=== PATIENT | female | born 1980 | race Caucasian/White ===

== ENCOUNTER 2016-08-23 21:27 | Inpatient (IN) ==
[2016-08-23 21:49] LABS: Basophils % 0.2 %; Hematocrit 38.6 % (35.3-44.9); Hemoglobin 13.2 g/dL (11.5-15.4); Immature Granulocytes % 1.2 % (0-4); Lymphocytes # 2.5 K/mcL (0.6-4.6); Lymphocytes % 11.8 %; Mean Corpuscular HGB Conc 34.2 g/dL (31.6-35.5); Mean Corpuscular Hemoglobin 28.3 pg (28.0-33.3); Mean Corpuscular Volume 82.8 fL (83.0-100.0); Mean Platelet Volume 9.3 fL (9.4-12.4); Monocytes # 0.8 K/mcL (0.0-1.3); Monocytes % 3.7 %; Neutrophils # 17.8 K/mcL (1.6-8.9); Platelet Count 428 K/mcL (140-400); Red Blood Count 4.66 M/mcL (3.82-4.97); Red Cell Distribution Width 13.5 % (11.5-14.5); Segmented Neutrophils % 83.1 %
--- NOTE | 2016-08-23 21:50 | Emergency Department Note ---
Disposition Clinical Impression: Pericardial effusion, Atypical chest pain Disposition: Admitted As Inpatient Condition: Fair Time of Disposition: 23:19 (preethijustin agee [facility]) Chest Pain HPI - General Chief Complaint: ED Chest Pain Stated Complaint: Chest pain Time Seen by Provider: 08/23/16 21:35 Source: patient Mode of arrival: ambulatory Limitations: no limitations Vital Signs Reviewed: Yes Nursing Notes Reviewed: Yes - History of Present Illness HPI Narrative: 36-year-old female while fixing dinner started developing some substernal chest pain patient continued to fix dinner and then eat dinner and then came to the emergency room complaining of the chest pain patient states it has been going on for about 4-5 hours prior to arrival patient states that substernal hurts to breathe hurts to move denies any cough hemoptysis or sputum production she denies any recent infection she denies any rashes or lesions she has a diarrhea melena hematochezia symptoms patient is anything makes it better anything makes it worse shows a blurred vision double vision numbness tingling weakness recent weight gain or weight loss also systems reviewed otherwise negative Pt complaint: chest pain Onset (ago): hour(s) (4) Duration: constant Onset: during rest Pain Location: substernal Severity: moderate Severity scale (1-10): 7 Quality: tightness, heaviness Pain Radiation: back Improves with: nothing Worsens with: exertion, inspiration, movement Associated symptoms: Reports: diaphoresis, dyspnea, palpitations. Denies: nausea, vomiting, sense of impending doom, syncope, fever, cough, leg swelling Treatments prior to arrival chest pain: none - Related Data Home Medications Medication Instructions Recorded Confirmed Atorvastatin [Lipitor] 40 mg PO HS 03/17/15 08/23/16 Diazepam [Valium] 5 mg PO TID PRN 10/04/15 08/23/16 Albuterol Neb [Proventil Neb] 2.5 mg IH Q4HR PRN 03/03/16 08/23/16 Budesonide/Formoterol 80/4.5 2 puff IH BIDR 03/03/16 08/23/16 [Symbicort 80/4.5] Omeprazole [PriLOSEC] 20 mg PO DAILY 03/03/16 08/23/16 Trazodone HCl 200 - 300 mg PO HS 03/03/16 08/23/16 Vilazodone HCl [Viibryd] 40 mg PO DAILY 03/03/16 08/23/16 Hydrochlorothiazide 12.5 mg PO DAILY 07/29/16 08/23/16 Cyclobenzaprine [Flexeril] 10 mg PO TID 08/09/16 08/23/16 Previous Rx's Medication Instructions Recorded Montelukast [Singulair] 10 mg PO DAILY #30 tablet 03/22/15 Albuterol Sulfate [Albuterol 2 puff IH Q4H PRN #1 inh 02/02/16 Inhaler] Potassium Chloride 10 meq PO DAILY #30 tab.er.prt 02/02/16 Naproxen [Naprosyn] 500 mg PO BID #20 tablet 08/09/16 Allergies Allergy/AdvReac Type Severity Reaction Status Date / Time venom-honey bee Allergy Anaphylaxis Verified 03/30/16 15:57 [bee venom (honey bee)] All systems ED: reviewed and negative except as stated. Constitutional: Denies: fever, weakness Eyes: Denies: eye pain, eye discharge ENT ED: Denies: ear pain, throat pain Cardiovascular: Reports: chest pain, dyspnea on exertion. Denies: palpitations , paroxysmal nocturnal dyspnea Respiratory: Denies: cough, dyspnea, wheezes Gastrointestinal: Denies: abdominal pain, nausea, vomiting Genitourinary: Denies: urgency, dysuria Musculoskeletal: Reports: other (Lower extremity edema). Denies: back pain, neck pain, joint swelling Integumentary: Denies: rash, abrasion Neurological: Denies: headache, weakness Psychiatric: Denies: anxiety, depression Endocrine: Denies: fatigue Hematological/Lymphatic: Denies: easy bleeding Allergic/Immunologic: Denies: facial swelling Chest Pain PMH - Past Medical History Medical history: Reports: hyperlipidemia, hypertension, asthma, other (Back pain , degenerative disc disease), COPD Surgical history: Reports: other (Neck Surgery) Psychiatric history: Reports: previous psychiatric hospitalization, anxiety, bipolar, depression, prior suicide attempt BLOCK TRIMMER history: Reports: bilateral tubal ligation - Social History Smoking Status: Former smoker Alcohol use: Reports: none Drug use: Reports: none Physical Exam - General Limitations: no limitations General appearance: alert, in no apparent distress, anxious, obese - Head Head exam: atraumatic, normocephalic, normal inspection - Eye Eye exam: Present: normal appearance, PERRL, EOMI - ENT ENT exam: normal exam, normal oropharynx, mucous membranes moist, normal external ear exam - Neck Neck exam: Present: normal inspection, trachea midline, other (no JVD) - Chest Chest inspection: Present: normal inspection, symmetric chest wall rise - Respiratory Respiratory exam: Present: normal lung sounds bilaterally - Cardiovascular Cardiovascular exam: Present: regular rate, normal rhythm, normal heart sounds. Absent: JVD - Abdominal Exam Abdominal exam: Present: soft, Non-Tender, normal bowel sounds. Absent: mass, pulsatile mass - Extremities Exam Extremities exam: Present: normal inspection, full ROM, normal capillary refill. Absent: tenderness, joint swelling - Expanded Lower Extremity Exam Gait: observed and normal - Back Exam Back exam: Present: normal inspection, full ROM. Absent: muscle spasm - Neurological Exam Neurological exam: Present: alert, oriented X3, CN II-XII intact - Psychiatric Psychiatric exam: Present: normal affect, normal mood - Skin Skin exam: Present: warm, dry, intact, normal color Course Course Narrative: Patient seen and examined patient is admitted for observation after a CAT scan shows effusion around the heart versus wall thickening to determine the etiology of this shiny neck heart but with her having chest pain we will admit her for observation tonight and do the echo patient be transferred to [facility] telemetry service services Dr. Hooks initial laboratory data with the exception of the white count being elevated was negative Vital Signs Temperature 97.7 F 08/23/16 21:28 Pulse Rate 122 08/23/16 21:28 Respiratory Rate 18 08/23/16 21:28 Blood Pressure 157/98 08/23/16 21:28 O2 Sat by Pulse Oximetry 98 08/23/16 21:28 Temperature 97.7 F 08/23/16 21:32 Pulse Rate 110 08/23/16 23:45 Respiratory Rate 21 08/23/16 23:45 Blood Pressure 129/49 08/23/16 23:45 O2 Sat by Pulse Oximetry 95 08/23/16 23:45 Oxygen Delivery Oxygen Delivery Room Air Chest Pain - MDM Narrative Medical decision making narrative: pericardial effusion - Differential Diagnosis Likely: atypical chest pain, chest pain - Medical Records Medical records reviewed: Yes I reviewed the patient's medical records. - Lab Data Lab results reviewed: Yes I reviewed the patient's lab results. Result diagrams: 08/23/16 21:42 08/23/16 21:42 Lab Results 08/23/16 08/23/16 08/23/16 Range/Units 21:42 21:42 21:42 WBC 21.4 H (4.3-11.1) K/mcL RBC 4.66 (3.82-4.97) M/mcL Hgb 13.2 (11.5-15.4) g/dL Hct 38.6 (35.3-44.9) % MCV 82.8 L (83.0-100.0) fL MCH 28.3 (28.0-33.3) pg MCHC 34.2 (31.6-35.5) g/dL RDW 13.5 (11.5-14.5) % Plt Count 428 H (140-400) K/mcL MPV 9.3 L (9.4-12.4) fL Immature Gran % 1.2 (0-4) % Seg Neutrophils % 83.1 % Lymphocytes % 11.8 % Monocytes % 3.7 % Eosinophils % 0.0 % Basophils % 0.2 % Neutrophils # 17.8 H (1.6-8.9) K/mcL Lymphocytes # 2.5 (0.6-4.6) K/mcL Monocytes # 0.8 (0.0-1.3) K/mcL Eosinophils # 0.0 (0.0-0.6) K/mcL Basophils # 0.0 (0.0-0.2) K/mcL PT 10.7 (9.4-12.1) Seconds INR 1.0 APTT 28.2 (26.0-36.0) Seconds D-Dimer 330 (0-500) ng/mLFEU Sodium 138 (136-145) mEq/L Potassium 3.8 (3.5-4.5) mEq/L Chloride 101 (98-109) mEq/L Carbon Dioxide 23 (19-29) mEq/L BUN 11 (7-20) mg/dL Creatinine 0.72 (0.57-1.11) mg/dL Est GFR ( Amer) > 60 (> 60) Est GFR (Non-Af Amer) > 60 (> 60) BUN/Creatinine Ratio 15 (6-26) Glucose 131 H (70-99) mg/dL Calculated Osmolality 287 (280-300) Calcium 9.4 (8.6-10.8) mg/dL Troponin I (0-0.03) ng/mL 08/23/16 Range/Units 21:42 WBC (4.3-11.1) K/mcL RBC (3.82-4.97) M/mcL Hgb (11.5-15.4) g/dL Hct (35.3-44.9) % MCV (83.0-100.0) fL MCH (28.0-33.3) pg MCHC (31.6-35.5) g/dL RDW (11.5-14.5) % Plt Count (140-400) K/mcL MPV (9.4-12.4) fL Immature Gran % (0-4) % Seg Neutrophils % % Lymphocytes % % Monocytes % % Eosinophils % % Basophils % % Neutrophils # (1.6-8.9) K/mcL Lymphocytes # (0.6-4.6) K/mcL Monocytes # (0.0-1.3) K/mcL Eosinophils # (0.0-0.6) K/mcL Basophils # (0.0-0.2) K/mcL PT (9.4-12.1) Seconds INR APTT (26.0-36.0) Seconds D-Dimer (0-500) ng/mLFEU Sodium (136-145) mEq/L Potassium (3.5-4.5) mEq/L Chloride (98-109) mEq/L Carbon Dioxide (19-29) mEq/L BUN (7-20) mg/dL Creatinine (0.57-1.11) mg/dL Est GFR ( Amer) (> 60) Est GFR (Non-Af Amer) (> 60) BUN/Creatinine Ratio (6-26) Glucose (70-99) mg/dL Calculated Osmolality (280-300) Calcium (8.6-10.8) mg/dL Troponin I 0.00 (0-0.03) ng/mL - Radiology Data Radiology results reviewed: Yes I reviewed the patient's radiology results. ITS Impressions Chest X-Ray 08/23/16 21:37 IMPRESSION: 1. No acute cardiopulmonary disease. D/ / Brendan Nagy MD / Brendan Nagy MD Interpreting Provider: Brendan Nagy MD Impressions Chest X-Ray 08/23/16 21:37 IMPRESSION: 1. No acute cardiopulmonary disease. D/ / Brendan Nagy MD / Brendan Nagy MD Interpreting Provider: Brendan Nagy MD Chest CT 08/23/16 22:23 IMPRESSION: Pericardial effusion versus thickening. Otherwise negative exam. D/ / Bijan Mckay MD / Bijan Mckay MD Interpreting Provider: Bijan Mckay MD - EKG Data EKG attestation: Yes I reviewed and interpreted this EKG. EKG results narrative: Sinus tach rate 118 nonspecific T-wave changes VA 156 QRS 69 QT [address] segment elevation no RSR prime Heart Score - Score History: Slightly Suspicious EKG: Normal Age: Less than 45 Risk Factors: No risk factors known Troponin: Less than normal limit HEART Score Total: 0 Critical Care Time Critical Care Time: No
[2016-08-23 21:56] LABS: Prothrombin Time 10.7 Seconds (9.4-12.1)
[2016-08-23 21:59] LABS: Activated Partial Thrombo Time 28.2 Seconds (26.0-36.0)
[2016-08-23 22:03] LABS: BUN/Creatinine Ratio 15 (6-26); Blood Urea Nitrogen 11 mg/dL (7-20); Calcium 9.4 mg/dL (8.6-10.8); Carbon Dioxide 23 mEq/L (19-29); Chloride 101 mEq/L (98-109); Glucose 131 mg/dL (70-99); Osmolality,Calculated 287 (280-300); Potassium 3.8 mEq/L (3.5-4.5); Sodium 138 mEq/L (136-145); eGFR For African Americans > 60 (> 60); eGFR For Non-African Americans > 60 (> 60)
[2016-08-23] MEDS ORDERED: Aspirin 81 MG TAB.CHEW PO ONE (23:41)
[2016-08-23] MEDS ORDERED: Acetaminophen 325 MG TABLET PO PRN (23:58)
[2016-08-23] MEDS ORDERED: Albuterol 2.5 MG/3 ML NEBULIZER IH PRN (23:58)
[2016-08-23] MEDS ORDERED: Naloxone 0.4 MG/ML INJ IVP PRN (23:58)
[2016-08-24 05:49] LABS: Basophils # 0.1 K/mcL (0.0-0.2); Basophils % 0.3 %; Eosinophils # 0.1 K/mcL (0.0-0.6); Eosinophils % 0.4 %; Hematocrit 36.7 % (35.3-44.9); Hemoglobin 12.1 g/dL (11.5-15.4); Lymphocytes # 4.6 K/mcL (0.6-4.6); Lymphocytes % 23.6 %; Mean Corpuscular Hemoglobin 27.9 pg (28.0-33.3); Mean Corpuscular Volume 84.6 fL (83.0-100.0); Mean Platelet Volume 9.2 fL (9.4-12.4); Monocytes # 1.4 K/mcL (0.0-1.3); Monocytes % 7.4 %; Neutrophils # 13.1 K/mcL (1.6-8.9); Platelet Count 379 K/mcL (140-400); Red Blood Count 4.34 M/mcL (3.82-4.97); Red Cell Distribution Width 13.6 % (11.5-14.5); Segmented Neutrophils % 67.3 %
[2016-08-24 05:57] LABS: Activated Partial Thrombo Time 27.8 Seconds (26.0-36.0)
[2016-08-24] MEDS: (Vilazodone Hcl [Viibryd] 40 MG) PO SCH (08:12)
[2016-08-24] MEDS: Budesonide/Formoterol 80/4.5 MDI IH SCH ×2 (10:03→21:47)
--- NOTE | 2016-08-24 11:42 | Internal Med History&Physical ---
Date of Encounter: 08/24/16 Time of Encounter: 11:10 Assessment and Plan (1) Atypical chest pain Current visit: Yes Status: Acute Repeat cardiac enzymes were ordered through the emergency room. Doubt myocardial ischemic origin. (2) Pericardial effusion Current visit: Yes Status: Acute Echocardiogram has been ordered. She is asymptomatic. Internal Medicine - H&P: HPI Chief complaint: Chest pain and dyspnea Admitted From: Home Plans for Post Hospital Care: Home History of present illness: Ms. Hanna is a 36 year old female who came to emergency complaining of sudden onset of sharp chest pain approximate 7:15 PM as she was having a stressful interaction with her son. She reports her blood pressure was elevated at 163/ 115 and heart rate elevated at 130. She took a lisinopril from her significant other's supply. After waiting 1 hour she found blood pressure and heart rate were still elevated so came to emergency room. She was evaluated with chest CT showing possible anterior pericardial effusion. She was admitted to [facility] floor for ongoing care needs. She states her chest pain has resolved and she has only minimal dyspnea now. She states she had similar sharp chest pains 3-4 times in the past with most recent episode several months ago. She has history of hypertension but denies [place] heart failure angina DVT or pulmonary embolus. She attempted a stress test several years ago but could not complete it. She had an echocardiogram 2015 which showed LVEF of 60-65% with mild LV diastolic dysfunction reported. Her interventricular septum thickness measurement was minimally elevated at 1.1 cm. There was no significant valvular abnormalities seen. Past Med Surg Social Fam HX - Past Medical History Medical history: hyperlipidemia, hypertension, asthma, other, COPD Psychiatric history: previous psychiatric hospitalization, anxiety, bipolar, depression, prior suicide attempt - Past Surgical History Surgical History: other - Social History Smoking Status: Former smoker Packs per day: 1 1/2 Smokeless Tobacco Status: No Alcohol use: none Drug use: none - Family History Father Adopted: [place]: faby perez Age: 59 Family Member Ethnicity: Non- Living Status: Age at : 59 Cause of : complication of dm Hx Family Cardiac Disorders: Yes Hx Family Respiratory Disorders: Yes Hx Family Cancer: Yes Hx Family GI Disorders: No Hx Family Genitourinary Disorders: No Hx Family Endocrine Disorder: No Hx Family Musculoskeletal Disorders: No Hx Family Neuromuscular Disorders: No Hx Family Neurologic Disorders: No Hx Family HEENT Disorders: No Hx Family Autoimmune Disorders: No Hx Family Reproductive Disorders: Yes (mother had cervical ca) Hx Family Psychosocial Disorders: No Hx Family Medical Disorders: Yes (dm,cad,obesity) Mother Adopted: No Living Status: Hx Family Respiratory Disorders: Yes Hx Family Cancer: Yes Internal Medicine - H&P: Meds Atorvastatin [Lipitor] 40 mg PO HS 03/17/15 [History] Montelukast [Singulair] 10 mg PO DAILY #30 tablet 03/22/15 [Rx] Diazepam [Valium] 5 mg PO TID PRN 10/04/15 [History] Albuterol Sulfate [Albuterol Inhaler] 2 puff IH Q4H PRN #1 inh 02/02/16 [Rx] Potassium Chloride 10 meq PO DAILY #30 tab.er.prt 02/02/16 [Rx] Albuterol Neb [Proventil Neb] 2.5 mg IH Q4HR PRN 03/03/16 [History] Budesonide/Formoterol 80/4.5 [Symbicort 80/4.5] 2 puff IH BIDR 03/03/16 [ History] Omeprazole [PriLOSEC] 20 mg PO DAILY 03/03/16 [History] Trazodone HCl 200 - 300 mg PO HS 03/03/16 [History] Vilazodone HCl [Viibryd] 40 mg PO DAILY 03/03/16 [History] Hydrochlorothiazide 12.5 mg PO DAILY 07/29/16 [History] Cyclobenzaprine [Flexeril] 10 mg PO TID 08/09/16 [History] Naproxen [Naprosyn] 500 mg PO BID #20 tablet 08/09/16 [Rx] Allergies venom-honey bee [bee venom (honey bee)] Allergy (Verified 03/30/16 15:57) Anaphylaxis All Systems PM: A 10-system review of systems was performed and is negative for pertinent findings except as documented above in the HPI. Review of systems: Gen.: Her weight has increased from 90.718 kg at April 2014 [facility] hospitalization to present weight of 104.326 kg. Cardiovascular: As per history of present illness Respiratory: Smoked from age [age] up to 1-1/2 packs per day. She does not wear home oxygen and has not been tested for sleep apnea. She had PFTs 2014 which showed normal results. GI: She has been diagnosed with NAFLD. She denies other disorder of her liver gallbladder or exocrine pancreas. : She had cystoscopy for hematuria approximately September 2013 which was unremarkable. She denies other kidney or bladder disorders. Neurologic: She denies large distribution strokes or seizures. Endocrine: She has hyperlipidemia but no known diabetes or thyroid disease Hematology/oncology: She has chronic leukocytosis and has been evaluated by [facility] [place] quality control coordinator/oncologist. Her last visit was July 2016. She denies internal malignancies or other blood disorders Psychiatric: She has anxiety, Bipolar disorder, and insomnia Musk skeletal: She claims she has arthritis of her knees and spine. She denies gout or fibromyalgia. She has cervical HNP and had cervical spine surgery February 2016 at [facility] [place]. - Constitutional Vitals: Temp Pulse Resp BP Pulse Ox 97.5 F L 114 16 113/86 98 08/24/16 09:55 08/24/16 09:55 08/24/16 10:03 08/24/16 09:55 08/24/16 10:03 Exam: General: She is well-developed well-nourished female who appears in no severe distress at present time. HEENT: Head is atraumatic normocephalic. Eyes: EOMI. There is no scleral icterus. Mouth: Mucosa is moist. Neck: Supple and nontender. There is no thyromegaly or adenopathy noted. JVD could not be assessed due to obesity Heart: Regular without murmurs gallops or ectopics. There are no pericardial friction rubs heard. Lungs: No wheezes or crackles are heard. Abdomen: Soft and nontender. No masses or guarding are noted. Extremities: There is no cyanosis edema or clubbing noted. Dorsalis pedis and posttibial pulses are trace palpable bilaterally. Neurologic: Mental status: She is talkative and a good historian. Cranial nerves: Smile is symmetric. Forehead wrinkles bilaterally. Tongue protrudes midline. EOMI. Motor: There is no pronator drift. Cerebellar: Finger to nose is intact bilaterally. Skin: Warm and dry. She has multiple tattoos on her body Internal Med - H&P Results - Labs CBC & Chem 7: 08/24/16 05:43 08/23/16 21:42 Labs: Short CBC 08/24/16 Range/Units 05:43 WBC 19.4 H (4.3-11.1) K/mcL Hgb 12.1 (11.5-15.4) g/dL Hct 36.7 (35.3-44.9) % Plt Count 379 (140-400) K/mcL Neutrophils # 13.1 H (1.6-8.9) K/mcL Cardiac Enzymes 08/24/16 08/24/16 Range/Units 00:38 05:43 Troponin I 0.01 0.00 (0-0.03) ng/mL
[2016-08-24] MEDS: 0.9 % Sodium Chloride 1,000 ML IVC SCH ×2 (13:29→13:31)
--- NOTE | 2016-08-24 17:58 | ECHO - Doppler Report ---
Echocardiogram Name: Noemi Hanna Date of Study: 08/24/2016 Date: 1980 Ht: 60.0 in Medical Record#: [id number] Age: 36 Wt: 230.0 lb Gender: Female BSA: 1.98 Order #: [id number] Location: [facility] Room #: 50 Reading Physician: Umu Clark DO Drywall Sprayer: Cuauhtemoc Beckett RDCS Ordering Physician: Kimberli Cheema DO Primary Physician: Indications: Pericarditis/Pericardial Effusion/Tamponade Impressions: LVEF 60%. Normal left ventricular size and systolic function. Indeterminate left venticular diastoic function Normal right ventricular size and function. No significant valvular dysfunction. No pulmonary hypertension. Trivial pericardial effusion. No tamponade. Left Ventricular Wall Motion: Rest Echo Findings All wall segments showed normal motion. Findings: Study Quality * Technically sub-optimal due to body habitus. ECG Findings * Sinus tachycardia. Mitral Valve * Normal mitral valve structure. * No mitral stenosis. * Trace mitral regurgitation. Left Atrium * Normal left atrial size. Aortic Valve * No aortic regurgitation. * Aortic valve not well visualized. Tricuspid Valve * Tricuspid valve not well visualized. * No tricuspid regurgitation. Pulmonic Valve * Pulmonic valve is not well visualized. * No pulmonic stenosis. * No pulmonic regurgitation. Pulmonary Artery * Pulmonary artery not well visualized. Right Ventricle * Normal right ventricular structure and function. Right Atrium * Normal right atrial size. Left Ventricle * Normal LV chamber size, wall thickness and function. * LVEF 60%. * Indeterminate diastolic function. Interatrial Septum * No evidence of PFO by color Doppler. IVC * Normal IVC dimensions and inspiratory collapse. Pericardium * There is a trivial pericardial effusion present. Aorta * Normally sized aortic root. History 5..16 a Previous Echo was performed. Measurements: BP: 116/ 80 2D Normal Values IVSd: .90 cm 0.6 - 1.0 cm LVIDd: 4.50 cm 3.7 - 5.6 cm LVPWd: .80 cm 0.6 - 1.1 cm LVIDs: 3.20 cm 1.5 - 3.6 cm AO: 2.70 cm < 4.0 cm LA: 3.00 cm 2.0 - 4.0cm %FS: 29.00 cm >25 % LA volume: 28 Mitral Valve Peak E:.94 m/sec Peak E' Lat Duglas:8.48 cm/s Peak E' Med Duglas:9.94 cm/s E/E' Lat Ratio:11.1 E/E' Med Ratio:9.4 Updated by Umu Clark on 08/24/2016 5:51:59 PM electronically signed on 08/24/2016 5:53:16 PM with status of Final Wall Motion Mello: 1=Normal, 2=Hypokinesis, 3=Akinesis, 4=Dyskinesis, 5=Aneurysmal, 6=Hyperkinetic, X=Not Visualized (Blank)=Missing
[2016-08-24] MEDS: *HR* Enoxaparin 40 MG/0.4 ML SYRINGE SQ SCH (18:54)
[2016-08-25] MEDS: *HR* Enoxaparin 40 MG/0.4 ML SYRINGE SQ SCH (05:05)
[2016-08-25 06:48] VITALS: BP 130/76
--- NOTE | 2016-08-25 09:51 | Discharge Summary ---
Date of Encounter: 08/25/16 Time of Encounter: 09:40 - Discharge Diagnosis (1) Atypical chest pain Priority: Primary Status: Resolved (2) Pericardial effusion Priority: Secondary Status: Acute - Discharge Medications Home Medications: Atorvastatin [Lipitor] 40 mg PO HS 03/17/15 [History] Montelukast [Singulair] 10 mg PO DAILY #30 tablet 03/22/15 [Rx] Diazepam [Valium] 5 mg PO TID PRN 10/04/15 [History] Albuterol Sulfate [Albuterol Inhaler] 2 puff IH Q4H PRN #1 inh 02/02/16 [Rx] Potassium Chloride 10 meq PO DAILY #30 tab.er.prt 02/02/16 [Rx] Albuterol Neb [Proventil Neb] 2.5 mg IH Q4HR PRN 03/03/16 [History] Budesonide/Formoterol 80/4.5 [Symbicort 80/4.5] 2 puff IH BIDR 03/03/16 [ History] Omeprazole [PriLOSEC] 20 mg PO DAILY 03/03/16 [History] Trazodone HCl 200 - 300 mg PO HS 03/03/16 [History] Vilazodone HCl [Viibryd] 40 mg PO DAILY 03/03/16 [History] Hydrochlorothiazide 12.5 mg PO DAILY 07/29/16 [History] Cyclobenzaprine [Flexeril] 10 mg PO TID 08/09/16 [History] Naproxen [Naprosyn] 500 mg PO BID #20 tablet 08/09/16 [Rx] Allergies/Adverse Reactions: Allergies venom-honey bee [bee venom (honey bee)] Allergy (Verified 03/30/16 15:57) Anaphylaxis Date of admission: 08/24/16 15:21 Primary care physician: Dori Sheridan CNP - Patient Status Disposition: Home, Self-Care Condition: Fair Overall status at discharge: patient is progressing back to baseline - Discharge Instructions Follow Up With: Dori Sheridan CNP [Primary Care Provider] - - Diet and Activity Activity: resume usual activities as tolerated Diet: advance to your usual diet Hospital course: Ms. Hanna is a 36 year old female who came to emergency complaining of sudden onset of sharp chest pain approximate 7:15 PM as she was having a stressful interaction with her son. She reports her blood pressure was elevated at 163/ 115 and heart rate elevated at 130. She took a lisinopril from her significant other's supply. After waiting 1 hour she found blood pressure and heart rate were still elevated so came to emergency room. She was evaluated with chest CT showing possible anterior pericardial effusion. She was admitted to [facility] for ongoing care needs. Initial orders were written by the emergency room physician. I saw her on August 24 and performed a history and physical. Repeat cardiac enzymes showed no evidence of myocardial damage. I did not feel her chest pain was likely of myocardial ischemic origin. An echocardiogram was done and showed a trivial amount of pericardial effusion present. There was no evidence of pericardial tamponade. The LVEF was 60%. There was normal LV systolic function and indeterminate diastolic function seen. No significant valvular abnormalities were noted. When I saw her on August 25 she stated the chest pain had resolved. Her blood pressure normalized on home medication regimen. She felt stable for discharge home which I felt was reasonable. She will follow with her PCP Dori Sheridan CNP within 1 week. - Time Spent with Patient Total time spent providing and/or coordinating discharge services: - Constitutional Vitals: Temp Pulse Resp BP Pulse Ox 98.3 F 108 18 130/76 94 L 08/25/16 06:34 08/25/16 06:34 08/25/16 06:34 08/25/16 06:34 08/25/16 06:34
[2016-08-25] MEDS: (Vilazodone Hcl [Viibryd] 40 MG) PO SCH (10:07)
--- NOTE | 2016-08-25 13:09 | Electrocardiograph Report ---
[address] [address] Test Date: 2016-08-23 Pat Name: Noemi Hanna Department: [id number] Room: [facility] Gender: F Provider Network Analyst: : 1980 Requested By: Kimberli Cheema Order Number: [id number] Reading MD: Aaron Barnett MD Measurements Intervals [place] Rate: 118 P: 32 DC: 156 QRS: 41 QRSD: 69 T: 42 QT: 426 QTc: 496 Interpretive Statements SINUS TACHYCARDIA NONSPECIFIC T-WAVE ABNORMALITY Electronically Signed On 08-25-2016 13:07:59 EDT by Aaron Barnett MD
== END 2016-08-25 11:00 | disposition home or self-care (01) | DRG 207 ==
LOC: EMEROOPIK 21:27 → INPPIK 21:27
PROVIDERS: ADMIT Internal Medicine; ATTEND Internal Medicine

== ENCOUNTER 2017-05-23 17:39 | Inpatient (IN) ==
[2017-05-23] MEDS ORDERED: Albuterol 2.5 MG/3 ML NEBULIZER IH ONE ×2 (18:11→19:15)
[2017-05-23] MEDS ORDERED: methylPREDNISolone 125 MG/2 ML VIAL IVP ONE (18:11)
[2017-05-23] MEDS ORDERED: Ipratropium/Albuterol Neb 3 ML IH ONE ×2 (18:11→19:15)
--- NOTE | 2017-05-23 18:15 | Emergency Department Note ---
Disposition Clinical Impression: Acute exacerbation of chronic obstructive airways disease Disposition: Admitted As Inpatient Condition: Good Referrals: Dori Sheridan HIV COUNSELOR [Primary Care Provider] - Forms: ED Satisfaction Letter Time of Disposition: 20:52 SOB HPI - General Chief Complaint: ED Shortness of Breath/Dyspnea Stated Complaint: cough/wheezing Time Seen by Provider: 05/23/17 18:10 Source: patient Mode of arrival: ambulatory Limitations: no limitations Nursing Notes Reviewed: Yes Vital Signs Reviewed: Yes - History of Present Illness 37-year-old female with a cough and difficulty breathing since Tuesday. She has a sore throat with rhinorrhea. No fever. Her cough is productive white sputum. She has a history of COPD and asthma. No chest pain. No vomiting or diarrhea. Pt Subjective Complaint: shortness of breath, cough Onset (ago): day(s) (3) Context: recent illness Severity: moderate Consistency/Duration: constant Improves with: rest Worsens with: exertion, coughing Known history of: COPD, asthma Associated symptoms: Reports: wheezing, other (Sore throat and runny nose) Cough present: Yes Cough Description: Involuntary Cough Frequency: Intermittent Sputum production: Yes Sputum Amount: Moderate Sputum Color: White - Related Data Home oxygen amount: none Home Medications Medication Instructions Recorded Confirmed Atorvastatin [Lipitor] 40 mg PO HS 03/17/15 05/23/17 diazePAM [Valium] 5 mg PO TID PRN 10/04/15 05/23/17 Budesonide/Formoterol 80/4.5 2 puff IH BIDR 03/03/16 05/23/17 [Symbicort 80/4.5] Trazodone HCl 200 - 300 mg PO HS 03/03/16 05/23/17 Vilazodone HCl [Viibryd] 40 mg PO DAILY 03/03/16 05/23/17 Lisinopril [Zestril] 20 mg PO DAILY 09/02/16 05/23/17 Furosemide [Lasix] 20 mg PO DAILY 01/06/17 05/23/17 Meclizine HCl [Verticalm] 12.5 mg PO BID 01/06/17 05/23/17 Aspirin [Lo-Dose Aspirin EC] 1 tab PO DAILY 05/16/17 05/23/17 BuPROPion [Wellbutrin] 100 mg PO DAILY 05/16/17 05/23/17 Previous Rx's Medication Instructions Recorded Montelukast [Singulair] 10 mg PO DAILY #30 tablet 03/22/15 Albuterol Sulfate [Albuterol 2 puff IH Q4H PRN #1 inh 02/02/16 Inhaler] Potassium Chloride 10 meq PO DAILY #30 tab.er.prt 02/02/16 Allergies Allergy/AdvReac Type Severity Reaction Status Date / Time No Known Allergies Allergy Verified 12/28/16 14:51 All systems ED: reviewed and negative except as stated. Constitutional: Denies: fever, chills Eyes: Denies: eye discharge ENT ED: Reports: throat pain. 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 Absent: scleral icterus, conjunctival injection - ENT ENT exam: normal oropharynx, mucous membranes moist, TM's normal bilaterally - Neck Neck exam: Present: normal inspection, full ROM, trachea midline. Absent: tenderness, lymphadenopathy - Chest Chest inspection: Present: normal inspection, symmetric chest wall rise - Respiratory Respiratory exam: Present: wheezes (Moderate diffuse bilateral expiratory), prolonged expiratory phase. Absent: respiratory distress, accessory muscle use - Cardiovascular Cardiovascular exam: Present: regular rate, normal rhythm, normal heart sounds - Abdominal Exam Abdominal exam: Present: soft, Non-Tender - Extremities Exam Extremities exam: Present: normal inspection, full ROM, normal capillary refill. Absent: pedal edema, calf tenderness - Neurological Exam Neurological exam: Present: alert, oriented X3, normal gait - Psychiatric Psychiatric exam: Present: normal affect, normal mood - Skin Skin exam: Present: warm, dry, intact, normal color. Absent: cyanosis, diaphoresis Course - Reevaluation(s) Reevaluation #1: Patient had a total of 6 and he will nebulizers. She still has moderate expiratory wheezing. She does not feel like she is improved enough to go home. There is no evidence of infiltrate or pneumonia on her x-ray. I discussed the case with Dr. Hooks. He has accepted patient for admission. Time: 20:51 Vital Signs Temperature 98.0 F 05/23/17 17:43 Pulse Rate 115 05/23/17 17:43 Respiratory Rate 20 05/23/17 17:43 Blood Pressure 150/78 05/23/17 17:43 O2 Sat by Pulse Oximetry 98 05/23/17 17:43 Temperature 98.0 F 05/23/17 17:43 Pulse Rate 115 05/23/17 17:43 Respiratory Rate 20 05/23/17 19:38 Blood Pressure 150/78 05/23/17 17:43 O2 Sat by Pulse Oximetry 98 05/23/17 19:38 Oxygen Delivery Oxygen Delivery Room Air Shortness of Breath/Dyspnea - Differential Diagnosis Likely: acute exacerbation of chronic obstructive airways disease, congestive heart failure, pneumonia, asthma with exacerbation, pneumothorax, arrhythmia - Lab Data Lab results reviewed: Yes I reviewed the patient's lab results. Result diagrams: 05/23/17 18:18 05/23/17 18:18 Lab Results 05/23/17 05/23/17 05/23/17 Range/Units 18:18 18:18 18:18 WBC 8.9 (4.3-11.1) K/mcL RBC 4.56 (3.82-4.97) M/mcL Hgb 12.1 (11.5-15.4) g/dL Hct 37.4 (35.3-44.9) % MCV 82.0 L (83.0-100.0) fL MCH 26.5 L (28.0-33.3) pg MCHC 32.4 (31.6-35.5) g/dL RDW 13.5 (11.5-14.5) % Plt Count 368 (140-400) K/mcL MPV 9.2 L (9.4-12.4) fL Immature Gran % 0.7 (0-4) % Seg Neutrophils % 76.2 % Lymphocytes % 14.5 % Monocytes % 6.3 % Eosinophils % 2.1 % Basophils % 0.2 % Neutrophils # 6.8 (1.6-8.9) K/mcL Lymphocytes # 1.3 (0.6-4.6) K/mcL Monocytes # 0.6 (0.0-1.3) K/mcL Eosinophils # 0.2 (0.0-0.6) K/mcL Basophils # 0.0 (0.0-0.2) K/mcL Sodium 136 (136-145) mEq/L Potassium 4.1 (3.5-4.5) mEq/L Chloride 102 (98-109) mEq/L Carbon Dioxide 24 (19-29) mEq/L BUN 7 (7-20) mg/dL Creatinine 0.73 (0.57-1.11) mg/dL Est GFR ( Amer) > 60 (> 60) Est GFR (Non-Af Amer) > 60 (> 60) BUN/Creatinine Ratio 10 (6-26) Glucose 100 H (70-99) mg/dL Calculated Osmolality 280 (280-300) Calcium 9.8 (8.6-10.8) mg/dL Total Bilirubin 0.2 (0.2-1.2) mg/dL AST 22 (5-34) Units/L ALT 19 (0-55) Units/L Alkaline Phosphatase 106 (38-126) Units/L Troponin I 0.00 (0-0.03) ng/mL B-Natriuretic Peptide (0-100) pg/mL Serum Total Protein 7.7 (6.0-8.3) g/dL Albumin 3.3 L (3.5-5.0) g/dL Globulin 4.4 H (2.4-3.5) g/dL Albumin/Globulin Ratio 0.8 L (1.1-2.2) //17 Range/Units 18:18 WBC (4.3-11.1) K/mcL RBC (3.82-4.97) M/mcL Hgb (11.5-15.4) g/dL Hct (35.3-44.9) % MCV (83.0-100.0) fL MCH (28.0-33.3) pg MCHC (31.6-35.5) g/dL RDW (11.5-14.5) % Plt Count (140-400) K/mcL MPV (9.4-12.4) fL Immature Gran % (0-4) % Seg Neutrophils % % Lymphocytes % % Monocytes % % Eosinophils % % Basophils % % Neutrophils # (1.6-8.9) K/mcL Lymphocytes # (0.6-4.6) K/mcL Monocytes # (0.0-1.3) K/mcL Eosinophils # (0.0-0.6) K/mcL Basophils # (0.0-0.2) K/mcL Sodium (136-145) mEq/L Potassium (3.5-4.5) mEq/L Chloride (98-109) mEq/L Carbon Dioxide (19-29) mEq/L BUN (7-20) mg/dL Creatinine (0.57-1.11) mg/dL Est GFR ( Amer) (> 60) Est GFR (Non-Af Amer) (> 60) BUN/Creatinine Ratio (6-26) Glucose (70-99) mg/dL Calculated Osmolality (280-300) Calcium (8.6-10.8) mg/dL Total Bilirubin (0.2-1.2) mg/dL AST (5-34) Units/L ALT (0-55) Units/L Alkaline Phosphatase (38-126) Units/L Troponin I (0-0.03) ng/mL B-Natriuretic Peptide < 10 (0-100) pg/mL Serum Total Protein (6.0-8.3) g/dL Albumin (3.5-5.0) g/dL Globulin (2.4-3.5) g/dL Albumin/Globulin Ratio (1.1-2.2) - Radiology Data Radiology results reviewed: Yes I reviewed the patient's radiology results. Impressions Chest X-Ray 05/23/17 18:11 IMPRESSION: No acute cardiopulmonary process. D/ / 05/23/2017 19:42:24 Jose Tsai MD / [email or web address] Interpreting Provider: Jose Tsai MD - EKG Data EKG attestation: Yes I reviewed and interpreted this EKG. EKG results narrative: Sinus tachycardia, rate 111, nonspecific ST-T changes. Rhythm shows sinus tachycardia with a rate of 111, NC interval 158 ms, QRS 76 ms was no other ectopy as interpreted by me.
[2017-05-23 18:25] LABS: Basophils % 0.2 %; Eosinophils # 0.2 K/mcL (0.0-0.6); Eosinophils % 2.1 %; Hematocrit 37.4 % (35.3-44.9); Hemoglobin 12.1 g/dL (11.5-15.4); Immature Granulocytes % 0.7 % (0-4); Lymphocytes # 1.3 K/mcL (0.6-4.6); Lymphocytes % 14.5 %; Mean Corpuscular HGB Conc 32.4 g/dL (31.6-35.5); Mean Corpuscular Hemoglobin 26.5 pg (28.0-33.3); Mean Platelet Volume 9.2 fL (9.4-12.4); Monocytes # 0.6 K/mcL (0.0-1.3); Monocytes % 6.3 %; Neutrophils # 6.8 K/mcL (1.6-8.9); Platelet Count 368 K/mcL (140-400); Red Blood Count 4.56 M/mcL (3.82-4.97); Red Cell Distribution Width 13.5 % (11.5-14.5); Segmented Neutrophils % 76.2 %
[2017-05-23 18:41] LABS: Alanine Aminotransferase 19 Units/L (0-55); Albumin 3.3 g/dL (3.5-5.0); Albumin/Globulin Ratio 0.8 (1.1-2.2); Alkaline Phosphatase 106 Units/L (38-126); Aspartate Amino Transferase 22 Units/L (5-34); BUN/Creatinine Ratio 10 (6-26); Bilirubin,Total 0.2 mg/dL (0.2-1.2); Blood Urea Nitrogen 7 mg/dL (7-20); Calcium 9.8 mg/dL (8.6-10.8); Carbon Dioxide 24 mEq/L (19-29); Chloride 102 mEq/L (98-109); Globulin 4.4 g/dL (2.4-3.5); Glucose 100 mg/dL (70-99); Osmolality,Calculated 280 (280-300); Potassium 4.1 mEq/L (3.5-4.5); Sodium 136 mEq/L (136-145); Total Protein 7.7 g/dL (6.0-8.3); eGFR For African Americans > 60 (> 60); eGFR For Non-African Americans > 60 (> 60)
[2017-05-23] MEDS ORDERED: diazePAM 5 MG TABLET PO PRN (22:39)
[2017-05-23] MEDS ORDERED: Ondansetron ODT 4 MG TAB.RAPDIS SL PRN (22:39)
[2017-05-23] MEDS ORDERED: Naloxone 0.4 MG/ML INJ IVP PRN (22:39)
[2017-05-23] MEDS: traZODone 50 MG TABLET PO SCH (22:57)
[2017-05-24] MEDS: Ipratropium/Albuterol Neb 3 ML IH SCH ×5 (00:52→21:09)
[2017-05-24] MEDS: MethylPREDNISolone 40 MG/ML VIAL IVP SCH ×4 (04:06→22:34)
[2017-05-24] MEDS: *HR* Enoxaparin 40 MG/0.4 ML SYRINGE SQ SCH (06:02)
[2017-05-24] MEDS: VILAZODONE HCL 40 MG PO SCH (08:48)
[2017-05-24] MEDS: Aspirin Enteric Coated 81 MG Tablet PO SCH (08:52)
[2017-05-24] MEDS: Furosemide 20 MG TABLET PO SCH (08:53)
[2017-05-24] MEDS ORDERED: Lisinopril 20 MG TABLET PO SCH (09:00)
[2017-05-24] MEDS ORDERED: Levalbuterol Neb 1.25 MG/3 ML ONE (10:25)
[2017-05-24] MEDS ORDERED: *HR* LORazepam 2 MG/ML VIAL IVP ONE (11:32)
[2017-05-24] MEDS ORDERED: *HR* LORazepam 2 MG/ML VIAL ONE (11:35)
--- NOTE | 2017-05-24 11:36 | Internal Med History&Physical ---
Date of Encounter: 05/24/17 Time of Encounter: 11:05 Assessment and Plan (1) Asthma with acute exacerbation Current visit: No Status: Chronic She has been started on Solu-Medrol IV with scheduled DuoNebs. No infiltrate was seen on chest x-rays so antibiotics will not be given at this time. Qualifiers: Asthma severity: unspecified severity Asthma persistence: intermittent Qualified Code(s): J45.21 - Mild intermittent asthma with (acute) exacerbation (2) Hypertension Current visit: No Status: Chronic She has tachycardia present on vital signs August 2016 and admission now. Will decrease lisinopril and start low-dose Toprol-XL. Qualifiers: Hypertension type: essential hypertension Qualified Code(s): I10 - Essential (primary) hypertension Internal Medicine - H&P: HPI Chief complaint: Dyspnea Admitted From: Emergency Dept Plans for Post Hospital Care: Home History of present illness: Ms. Hanna is a 37 year old female came to emergency room stating she had onset of dyspnea with cough productive of white sputum on May 21. He had vomiting this morning but no vomiting or diarrhea previously. Evaluated emergency room and felt to have exacerbation of COPD. She was admitted to Med[facility] floor for ongoing care needs. Her respiratory history significant for having smoked from age [age] up to 1-1/ 2 packs per day. She does not wear home oxygen and has not been tested for sleep apnea. She had PFTs 04/04/2015 which showed normal results. Past Med Surg Social Fam HX - Past Medical History Medical history: asthma, COPD, GERD, hyperlipidemia, hypertension, other Psychiatric history: previous psychiatric hospitalization, anxiety, bipolar, depression, prior suicide attempt - Past Surgical History Surgical History: other - Social History Smoking Status: Former smoker Smokeless Tobacco Status: No Alcohol use: none Drug use: none - Family History Father Adopted: No Family Member Ethnicity: Non- Living Status: Hx Family Cardiac Disorders: Yes Hx Family Respiratory Disorders: Yes Hx Family Cancer: Yes Hx Family GI Disorders: No Hx Family Endocrine Disorder: Yes Hx Family Neuromuscular Disorders: No Hx Family Neurologic Disorders: No Hx Family HEENT Disorders: No Hx Family Autoimmune Disorders: No Mother Adopted: No Living Status: Hx Family Cardiac Disorders: Yes Hx Family Respiratory Disorders: Yes (COPD, Asthma) Hx Family Cancer: Yes (Cervial) Internal Medicine - H&P: Meds Atorvastatin [Lipitor] 40 mg PO HS 03/17/15 [History] Montelukast [Singulair] 10 mg PO DAILY #30 tablet 03/22/15 [Rx] diazePAM [Valium] 5 mg PO TID PRN 10/04/15 [History] Albuterol Sulfate [Albuterol Inhaler] 2 puff IH Q4H PRN #1 inh 02/02/16 [Rx] Potassium Chloride 10 meq PO DAILY #30 tab.er.prt 02/02/16 [Rx] Budesonide/Formoterol 80/4.5 [Symbicort 80/4.5] 2 puff IH BIDR 03/03/16 [ History] Trazodone HCl 200 - 300 mg PO HS 03/03/16 [History] Vilazodone HCl [Viibryd] 40 mg PO DAILY 03/03/16 [History] Lisinopril [Zestril] 20 mg PO DAILY 09/02/16 [History] Furosemide [Lasix] 20 mg PO DAILY 01/06/17 [History] Meclizine HCl [Verticalm] 12.5 mg PO BID 01/06/17 [History] Aspirin [Lo-Dose Aspirin EC] 1 tab PO DAILY 05/16/17 [History] BuPROPion [Wellbutrin] 100 mg PO DAILY 05/16/17 [History] Diltiazem CD (24hr) [Cardizem CD] 120 mg PO DAILY 05/23/17 [History] Isosorbide MONOnitrate [Isosorbide Mononitrate ER] 30 mg PO DAILY 05/23/17 [ History] 3 Allergy/AdvReac Type Severity Reaction Status Date / Time No Known Allergies Allergy Verified 12/28/16 14:51 All Systems PM: A 10-system review of systems was performed and is negative for pertinent findings except as documented above in the HPI. Review of systems: Review of systems from her August 2016 [facility] hospitalization were reviewed and revised as below. Gen.: Her weight has increased from 90.718 kg at April 2014 [facility] hospitalization to present weight of 113.398 kg. Cardiovascular: She has history of hypertension but denies [place] heart failure angina DVT or pulmonary embolus. She attempted a stress test several years ago but could not complete it. She had an echocardiogram 10/31/2015 which showed LVEF of 60-65% with mild LV diastolic dysfunction reported. Her interventricular septum thickness measurement was minimally elevated at 1.1 cm. There was no significant valvular abnormalities seen. Respiratory: As per history of present illness GI: She has been diagnosed with NAFLD. She denies other disorder of her liver gallbladder or exocrine pancreas. : She had cystoscopy for hematuria approximately September 2013 which was unremarkable. She denies other kidney or bladder disorders. Neurologic: She denies large distribution strokes or seizures. Endocrine: She has hyperlipidemia but no known diabetes or thyroid disease Hematology/oncology: She has chronic leukocytosis and has been evaluated by [facility] dat instructor/oncologist. Her last visit was July 2016. She denies internal malignancies or other blood disorders. Her WBC was normal in emergency room Psychiatric: She has anxiety, Bipolar disorder, and insomnia Musk skeletal: She claims she has arthritis of her knees and spine. She denies gout or fibromyalgia. She has cervical HNP and had cervical spine surgery February 2016 at [facility]. She has frequent low back pain. - Constitutional Vitals: Temp Pulse Resp BP Pulse Ox 97.8 F 101 24 118/55 96 05/24/17 06:54 05/24/17 06:54 05/24/17 09:03 05/24/17 06:54 05/24/17 09:03 Exam: Gen.: She is a well-developed obese female sitting on the side of the bed who appears in mild respiratory distress HEENT: Head is atraumatic normocephalic. Eyes: EOMI. There is no scleral icterus. Mouth: Mucosa is moist. Neck: There is no thyromegaly or adenopathy noted. Heart: Tachycardic with rate approximately 132/m. Lung: she has prolonged expiratory phase and mild diffuse wheezing. No inspiratory crackles are heard. Abdomen: Soft and nontender. No masses or guarding noted. Extremities: There is no cyanosis edema or clubbing noted. Dorsalis pedis and posterior tibial pulses are 1-2 over 2 bilaterally. Neurologic: Mental status: She is talkative and a good historian. Cranial nerves: Smile is symmetric. Forehead wrinkles bilaterally. Tongue protrudes midline. EOMI. Motor: There is no pronator drift. Cerebellar: Finger to nose is intact bilaterally. Skin: Warm and dry Internal Med - H&P Results - Labs CBC & Chem 7: 05/23/17 18:18 05/23/17 18:18
[2017-05-24] MEDS: Metoprolol XL (24 HR) Succ 25 MG TAB.ER.24H PO SCH (13:12)
[2017-05-24] MEDS: ALPRAZolam 0.5 MG TABLET PO PRN ×2 (13:14→19:48)
[2017-05-24] MEDS: Albuterol 2.5 MG/3 ML NEBULIZER IH PRN ×3 (14:18→20:35)
--- NOTE | 2017-05-24 16:42 | Electrocardiograph Report ---
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
[2017-05-24] MEDS ORDERED: Ondansetron 4 MG/2 ML VIAL IVP PRN (19:01)
[2017-05-24] MEDS ORDERED: *HR* Promethazine 25 MG/ML VIAL IVP PRN (19:03)
[2017-05-24] MEDS: *HR* LORazepam 2 MG/ML VIAL IVP PRN (19:46)
[2017-05-24] MEDS: traZODone 50 MG TABLET PO SCH (19:48)
[2017-05-24] MEDS: Budesonide/Formoterol 160/4.5 MDI IH SCH ×2 (20:35→20:54)
[2017-05-25] MEDS: Ipratropium/Albuterol Neb 3 ML IH SCH ×4 (03:50→22:24)
[2017-05-25] MEDS: MethylPREDNISolone 40 MG/ML VIAL IVP SCH ×2 (03:51→11:14)
[2017-05-25] MEDS ORDERED: methylPREDNISolone 125 MG/2 ML VIAL IVP SCH (04:00)
[2017-05-25 06:02] LABS: Basophils # 0.1 K/mcL (0.0-0.2); Basophils % 0.2 %; Hematocrit 36.8 % (35.3-44.9); Hemoglobin 11.9 g/dL (11.5-15.4); Immature Granulocytes % 1.7 % (0-4); Lymphocytes # 1.2 K/mcL (0.6-4.6); Lymphocytes % 3.8 %; Mean Corpuscular HGB Conc 32.3 g/dL (31.6-35.5); Mean Corpuscular Hemoglobin 26.9 pg (28.0-33.3); Mean Corpuscular Volume 83.3 fL (83.0-100.0); Mean Platelet Volume 9.7 fL (9.4-12.4); Monocytes # 0.5 K/mcL (0.0-1.3); Monocytes % 1.6 %; Platelet Count 430 K/mcL (140-400); Red Blood Count 4.42 M/mcL (3.82-4.97); Segmented Neutrophils % 92.7 %
[2017-05-25 06:11] LABS: Neutrophils # 29.7 K/mcL (1.6-8.9)
[2017-05-25 06:19] LABS: BUN/Creatinine Ratio 17 (6-26); Blood Urea Nitrogen 12 mg/dL (7-20); Calcium 9.9 mg/dL (8.6-10.8); Carbon Dioxide 22 mEq/L (19-29); Chloride 103 mEq/L (98-109); Glucose 148 mg/dL (70-99); Osmolality,Calculated 289 (280-300); Potassium 4.3 mEq/L (3.5-4.5); Sodium 138 mEq/L (136-145); eGFR For African Americans > 60 (> 60); eGFR For Non-African Americans > 60 (> 60)
[2017-05-25 06:47] LABS: Platelet Estimate Increased (Normal)
[2017-05-25] MEDS: *HR* Enoxaparin 40 MG/0.4 ML SYRINGE SQ SCH (07:36)
[2017-05-25] MEDS: Furosemide 20 MG TABLET PO SCH (09:12)
[2017-05-25] MEDS: Metoprolol XL (24 HR) Succ 25 MG TAB.ER.24H PO SCH (09:12)
[2017-05-25] MEDS: Aspirin Enteric Coated 81 MG Tablet PO SCH (09:12)
[2017-05-25 09:41] LABS: % Iron Saturation 10 % (15-50); Ferritin 155 ng/ml (10-120); Iron 29 mcg/dL (50-170); Transferrin 212 mg/dL (203-362)
[2017-05-25] MEDS: Budesonide/Formoterol 160/4.5 MDI IH SCH ×2 (09:42→22:23)
[2017-05-25] MEDS: Tiotropium 18 MCG inhalation IH SCH (09:42)
--- NOTE | 2017-05-25 11:01 | Internal Med Progress Note ---
Date of Encounter: 05/25/17 Time of Encounter: 10:50 - Assessment and plan (1) Asthma with acute exacerbation Current Visit: No Status: Chronic Assessment and plan: May 25. Will start IV Rocephin and Zithromax with lactobacillus. Will change to oral prednisone to lessen leukocytosis. Continue other pulmonary regimen. Qualifiers: Asthma severity: unspecified severity Asthma persistence: intermittent Qualified Code(s): J45.21 - Mild intermittent asthma with (acute) exacerbation (2) Hypertension Current Visit: No Status: Chronic Assessment and plan: May 25. Will increase Toprol to lessen tachycardia and improved blood pressure. Continue lisinopril. Qualifiers: Hypertension type: essential hypertension Qualified Code(s): I10 - Essential (primary) hypertension - Subjective Interval history: May 25. She has no new complaints except some soreness from coughing. She feels her wheezing has noticeably improved. - Constitutional Vitals: Temp Pulse Resp BP Pulse Ox 98.2 F 114 18 105/61 98 05/25/17 10:27 05/25/17 10:27 05/25/17 10:27 05/25/17 10:27 05/25/17 10:27 Exam: She is resting In bed. Her affect is more bright and cheerful. She does not appear dyspneic. Speech is appropriate. I reviewed her medications and lab results. Internal Medicine: Result - Labs CBC & Chem 7: 05/25/17 04:50 05/25/17 04:50 Labs: Short CBC 05/25/17 Range/Units 04:50 WBC 32.0 H* D (4.3-11.1) K/mcL Hgb 11.9 (11.5-15.4) g/dL Hct 36.8 (35.3-44.9) % Plt Count 430 H (140-400) K/mcL Neutrophils # 29.7 H (1.6-8.9) K/mcL BMP 05/25/17 04:50 Sodium 138 Potassium 4.3 Chloride 103 Carbon Dioxide 22 BUN 12 Creatinine 0.72 Glucose 148 H Calcium 9.9 Consult Discharge Plan - Plan Referrals: Dori Sheridan, MARKETING DEVELOPMENT SPECIALIST [Primary Care Provider] - 1 week
[2017-05-25] MEDS ORDERED: Metoprolol XL (24 HR) Succ 25 MG TAB.ER.24H PO ONE (11:30)
[2017-05-25] MEDS: Azithromycin 500 MG in D5% in Water 250 ML IVPB SCH (12:32)
[2017-05-25] MEDS: VILAZODONE HCL 40 MG PO SCH (12:33)
[2017-05-25] MEDS: Lactobacillus 1 EACH CAP.SPRINK PO SCH ×2 (13:47→19:53)
--- NOTE | 2017-05-25 18:55 | Electrocardiograph Report ---
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
[2017-05-25] MEDS: Albuterol 2.5 MG/3 ML NEBULIZER IH PRN (19:24)
[2017-05-25] MEDS: traZODone 50 MG TABLET PO SCH (19:53)
[2017-05-25] MEDS: predniSONE 10 MG TABLET PO SCH (19:54)
[2017-05-25] MEDS: *HR* LORazepam 2 MG/ML VIAL IVP PRN (19:54)
[2017-05-26] MEDS: Ipratropium/Albuterol Neb 3 ML IH SCH ×4 (04:29→20:58)
[2017-05-26 05:38] LABS: Basophils % 0.1 %; Hematocrit 37.5 % (35.3-44.9); Immature Granulocytes % 1.4 % (0-4); Lymphocytes # 2.5 K/mcL (0.6-4.6); Lymphocytes % 10.5 %; Mean Corpuscular Hemoglobin 26.6 pg (28.0-33.3); Mean Corpuscular Volume 83.1 fL (83.0-100.0); Mean Platelet Volume 9.5 fL (9.4-12.4); Monocytes # 1.1 K/mcL (0.0-1.3); Monocytes % 4.7 %; Neutrophils # 19.7 K/mcL (1.6-8.9); Platelet Count 407 K/mcL (140-400); Red Blood Count 4.51 M/mcL (3.82-4.97); Red Cell Distribution Width 14.1 % (11.5-14.5); Segmented Neutrophils % 83.3 %
[2017-05-26 05:56] LABS: BUN/Creatinine Ratio 19 (6-26); Blood Urea Nitrogen 13 mg/dL (7-20); Calcium 9.4 mg/dL (8.6-10.8); Carbon Dioxide 24 mEq/L (19-29); Chloride 102 mEq/L (98-109); Glucose 106 mg/dL (70-99); Magnesium 2.1 mg/dL (1.6-2.6); Osmolality,Calculated 289 (280-300); Potassium 4.3 mEq/L (3.5-4.5); Sodium 139 mEq/L (136-145); eGFR For African Americans > 60 (> 60); eGFR For Non-African Americans > 60 (> 60)
[2017-05-26] MEDS: *HR* Enoxaparin 40 MG/0.4 ML SYRINGE SQ SCH (06:24)
[2017-05-26] MEDS: Lactobacillus 1 EACH CAP.SPRINK PO SCH ×2 (09:03→21:06)
[2017-05-26] MEDS: Aspirin Enteric Coated 81 MG Tablet PO SCH (09:03)
[2017-05-26] MEDS: Metoprolol XL (24 HR) Succ 25 MG TAB.ER.24H PO SCH (09:03)
[2017-05-26] MEDS: Furosemide 20 MG TABLET PO SCH (09:03)
[2017-05-26] MEDS: predniSONE 10 MG TABLET PO SCH ×2 (09:03→18:09)
--- NOTE | 2017-05-26 09:51 | Internal Med Progress Note ---
Date of Encounter: 05/26/17 Time of Encounter: 09:40 - Assessment and plan (1) Asthma with acute exacerbation Current Visit: No Status: Chronic Assessment and plan: May 25. Will start IV Rocephin and Zithromax with lactobacillus. Will change to oral prednisone to lessen leukocytosis. Continue other pulmonary regimen. Qualifiers: Asthma severity: unspecified severity Asthma persistence: intermittent Qualified Code(s): J45.21 - Mild intermittent asthma with (acute) exacerbation (2) Hypertension Current Visit: No Status: Chronic Assessment and plan: May 25. Will increase Toprol to lessen tachycardia and improved blood pressure. Continue lisinopril. May 26. Improved. Continue Toprol and lisinopril with Lasix. Qualifiers: Hypertension type: essential hypertension Qualified Code(s): I10 - Essential (primary) hypertension - Subjective Interval history: May 25. She has no new complaints except some soreness from coughing. She feels her wheezing has noticeably improved. May 26. She has no new complaints and feels better. She does not feel she is ready for discharge yet. - Constitutional Vitals: Temp Pulse Resp BP Pulse Ox 97.5 F L 82 16 121/71 94 05/26/17 06:15 05/26/17 06:15 05/26/17 06:15 05/26/17 06:15 05/26/17 06:15 Exam: She is resting comfortably in bed and appears in no acute distress. There is no audible wheezing at bedside. Her affect is bright and cheerful. I reviewed her medications and lab results. Internal Medicine: Result - Labs CBC & Chem 7: 05/26/17 04:32 05/26/17 04:32 Labs: Short CBC 05/26/17 Range/Units 04:32 WBC 23.6 H (4.3-11.1) K/mcL Hgb 12.0 (11.5-15.4) g/dL Hct 37.5 (35.3-44.9) % Plt Count 407 H (140-400) K/mcL Neutrophils # 19.7 H (1.6-8.9) K/mcL BMP 05/26/17 04:32 Sodium 139 Potassium 4.3 Chloride 102 Carbon Dioxide 24 BUN 13 Creatinine 0.68 Glucose 106 H Calcium 9.4 Consult Discharge Plan - Plan Referrals: Dori Sheridan, FACILITY PLANNER [Primary Care Provider] - 1 week
[2017-05-26] MEDS: Tiotropium 18 MCG inhalation IH SCH (10:00)
[2017-05-26] MEDS: Budesonide/Formoterol 160/4.5 MDI IH SCH ×2 (10:01→20:58)
[2017-05-26] MEDS: VILAZODONE HCL 40 MG PO SCH (11:28)
[2017-05-26] MEDS: Azithromycin 500 MG in D5% in Water 250 ML IVPB SCH (11:33)
[2017-05-26] MEDS: traZODone 50 MG TABLET PO SCH (21:06)
[2017-05-26] MEDS: *HR* LORazepam 2 MG/ML VIAL IVP PRN (21:06)
[2017-05-27] MEDS: Ipratropium/Albuterol Neb 3 ML IH SCH (03:54)
[2017-05-27] MEDS: *HR* Enoxaparin 40 MG/0.4 ML SYRINGE SQ SCH (05:41)
[2017-05-27 06:29] VITALS: BP 121/82
[2017-05-27] MEDS: Aspirin Enteric Coated 81 MG Tablet PO SCH (08:14)
[2017-05-27] MEDS: Metoprolol XL (24 HR) Succ 25 MG TAB.ER.24H PO SCH (08:14)
[2017-05-27] MEDS: predniSONE 10 MG TABLET PO SCH (08:14)
[2017-05-27] MEDS: Furosemide 20 MG TABLET PO SCH (08:14)
[2017-05-27] MEDS: Lactobacillus 1 EACH CAP.SPRINK PO SCH (08:14)
--- NOTE | 2017-05-27 09:34 | Discharge Summary ---
Date of Encounter: 05/27/17 Time of Encounter: 09:25 - Discharge Diagnosis (1) Asthma with acute exacerbation Priority: Primary Status: Chronic Qualifiers: Asthma severity: unspecified severity Asthma persistence: intermittent Qualified Code(s): J45.21 - Mild intermittent asthma with (acute) exacerbation (2) Hypertension Priority: Secondary Status: Chronic Qualifiers: Hypertension type: essential hypertension Qualified Code(s): I10 - Essential (primary) hypertension - Discharge Medications Prescriptions: Cefuroxime PO [Ceftin] 500 mg PO Q12HR #10 tablet Azithromycin [Zithromax] 250 mg PO DAILY #5 tablet Lactobacillus [Culturelle] 1 each PO BID #10 cap.sprink Metoprolol Succinate 50 mg PO DAILY #30 tab.er.24h predniSONE [PredniSONE] 10 mg PO BIDWM #10 tablet Tiotropium [Spiriva] 18 mcg IH DAILYR #30 inh Home Medications: Atorvastatin [Lipitor] 40 mg PO HS 03/17/15 [History] Montelukast [Singulair] 10 mg PO DAILY #30 tablet 03/22/15 [Rx] diazePAM [Valium] 5 mg PO TID PRN 10/04/15 [History] Albuterol Sulfate [Albuterol Inhaler] 2 puff IH Q4H PRN #1 inh 02/02/16 [Rx] Potassium Chloride 10 meq PO DAILY #30 tab.er.prt 02/02/16 [Rx] Budesonide/Formoterol 80/4.5 [Symbicort 80/4.5] 2 puff IH BIDR 03/03/16 [ History] Trazodone HCl 200 - 300 mg PO HS 03/03/16 [History] Vilazodone HCl [Viibryd] 40 mg PO DAILY 03/03/16 [History] Furosemide [Lasix] 20 mg PO DAILY 01/06/17 [History] Meclizine HCl [Verticalm] 12.5 mg PO BID 01/06/17 [History] Aspirin [Lo-Dose Aspirin EC] 1 tab PO DAILY 05/16/17 [History] BuPROPion [Wellbutrin] 100 mg PO DAILY 05/16/17 [History] Isosorbide MONOnitrate [Isosorbide Mononitrate ER] 30 mg PO DAILY 05/23/17 [ History] Azithromycin [Zithromax] 250 mg PO DAILY #5 tablet 05/27/17 [Rx] Cefuroxime PO [Ceftin] 500 mg PO Q12HR #10 tablet 05/27/17 [Rx] Lactobacillus [Culturelle] 1 each PO BID #10 cap.sprink 05/27/17 [Rx] Metoprolol Succinate 50 mg PO DAILY #30 tab.er.24h 05/27/17 [Rx] Tiotropium [Spiriva] 18 mcg IH DAILYR #30 inh 05/27/17 [Rx] predniSONE [PredniSONE] 10 mg PO BIDWM #10 tablet 05/27/17 [Rx] Allergies/Adverse Reactions: 3 Allergy/AdvReac Type Severity Reaction Status Date / Time No Known Allergies Allergy Verified 12/28/16 14:51 Procedures/tests Complete & Pending: Procedures Performed prior 72 hours Category Date Time Status EKG [ECG 12 lead ECG] [ECG] Stat Y 05/24/17 13:20 Completed Date of admission: 05/23/17 22:18 Primary care physician: Dori Sheridan CNP - Patient Status Disposition: Home, Self-Care Condition: Good Overall status at discharge: patient is progressing back to baseline - Discharge Instructions Follow Up With: Dori Sheridan CNP [Primary Care Provider] - 1 week - Diet and Activity Activity: resume usual activities as tolerated Diet: advance to your usual diet Hospital course: Ms. Hanna is a 37 year old female who came to emergency room stating she had onset of dyspnea with cough productive of white sputum on May 21. She had vomiting the morning of admission but no vomiting or diarrhea previously. She was evaluated in emergency room and felt to have exacerbation of COPD. She was admitted to [facility] floor for ongoing care needs. Initial orders were written by the emergency room physician. I saw her on May 24 and performed a history and physical. She was initially given Solu- Medrol with DuoNeb nebs. Lisinopril was decreased and eventually discontinued and she was started on Toprol-XL. Cardizem was also discontinued. Her blood pressure and heart rate improved on this regimen. On May 25 there was significant rise in WBC to 32K with 92.7% segs. She was started on Rocephin and Zithromax. WBC improved to 23.6 by the following day. She had gradual clinical improvement and on May 27 I felt she was stable for discharge home. Room air oximetry showed saturation 94% on room air on a brief walk in the hospital. She will continue with antibiotics probiotic for 5 additional days at discharge. She will continue with Spiriva and her other home respiratory medications. She will follow with her PCP Dori Sheridan CNP within 1 week. - Time Spent with Patient Total time spent providing and/or coordinating discharge services: - Constitutional Vitals: Temp Pulse Resp BP Pulse Ox 98.6 F 89 18 121/82 97 05/27/17 06:28 05/27/17 06:28 05/27/17 06:28 05/27/17 06:28 05/27/17 08:25
[2017-05-28] MEDS ORDERED: Metoprolol XL (24 HR) Succ 50 MG TAB.ER.24H PO SCH (09:00)
== END 2017-05-27 11:07 | disposition home or self-care (01) | DRG 141 ==
LOC: EMEROOPIK 17:39 → INPPIK 17:39 → OBSVTOIN 22:18 → INPPIK 22:30
PROVIDERS: ADMIT Internal Medicine; ATTEND Internal Medicine

== ENCOUNTER 2017-09-19 17:43 | Inpatient (IN) ==
--- NOTE | 2017-09-19 17:58 | Emergency Department Note ---
Disposition Clinical Impression: COPD exacerbation, Pneumonia Disposition: Admitted As Inpatient Condition: Fair Referrals: Lam Zhao DO [Primary Care Provider] - Forms: ED Satisfaction Letter Time of Disposition: 19:03 ([facility]) URI/Sore Throat HPI - General Chief Complaint: ED Upper Respiratory Infection Stated Complaint: short of breath, cough Time Seen by Provider: 09/19/17 17:58 Source: patient Mode of arrival: ambulatory Limitations: no limitations Nursing Notes Reviewed: Yes Vital Signs Reviewed: Yes - History of Present Illness Pt Subjective Complaint: fever, cough, nasal congestion Onset (ago): day(s) Duration: constant, gradually worsening Severity: moderate Severity scale (1-10): 5 Improves with: nothing Worsens with: exertion, speaking If sputum, description: yellow Associated symptoms: Reports: myalgias, nasal congestion, cough, chest pain, shortness of breath. Denies: fever, chills, voice changes, diaphoresis, headache, rhinorrhea, sore throat, stiff neck, abdominal pain, nausea, vomiting , diarrhea, dysuria, rash, epistaxis - Related Data Home Medications Medication Instructions Recorded Confirmed Atorvastatin [Lipitor] 40 mg PO HS 03/17/15 09/19/17 diazePAM [Valium] 5 mg PO TID PRN 10/04/15 09/19/17 Trazodone HCl 200 - 300 mg PO HS 03/03/16 09/19/17 Vilazodone HCl [Viibryd] 40 mg PO DAILY 03/03/16 09/19/17 Furosemide [Lasix] 20 mg PO DAILY 01/06/17 09/19/17 Aspirin [Lo-Dose Aspirin EC] 1 tab PO DAILY 05/16/17 09/19/17 BuPROPion [Wellbutrin] 100 mg PO DAILY 05/16/17 09/19/17 Isosorbide MONOnitrate [Isosorbide 30 mg PO DAILY 05/23/17 09/19/17 Mononitrate ER] Estrogens, Conjugated [Premarin] 1 mg PO 09/19/17 Oxygen [Oxygen] 2 l IH HS 09/19/17 09/19/17 Previous Rx's Medication Instructions Recorded Montelukast [Singulair] 10 mg PO DAILY #30 tablet 03/22/15 Albuterol Sulfate [Albuterol 2 puff IH Q4H PRN #1 inh 02/02/16 Inhaler] Potassium Chloride 10 meq PO DAILY #30 tab.er.prt 02/02/16 Metoprolol Succinate 50 mg PO DAILY #30 tab.er.24h 05/27/17 Tiotropium [Spiriva] 18 mcg IH DAILYR #30 inh 05/27/17 Allergies Allergy/AdvReac Type Severity Reaction Status Date / Time No Known Allergies Allergy Verified 09/19/17 17:45 All systems ED: reviewed and negative except as stated. Review of Systems: As Per HPI Constitutional: Denies: fever, chills, weakness Eyes: Denies: eye pain, eye discharge ENT ED: Denies: ear pain, throat pain Cardiovascular: Reports: dyspnea on exertion. Denies: chest pain, palpitations Respiratory: Reports: cough, dyspnea, wheezes, sputum production Gastrointestinal: Denies: abdominal pain, nausea, vomiting Genitourinary: Denies: urgency, dysuria, frequency Musculoskeletal: Denies: back pain, neck pain, joint swelling Integumentary: Denies: rash, abrasion Neurological: Denies: headache, weakness Psychiatric: Denies: anxiety, depression Endocrine: Denies: fatigue, heat or cold intolerance Hematological/Lymphatic: Denies: easy bleeding, easy bruising Allergic/Immunologic: Denies: facial swelling, urticaria URI PMH - Past Medical History Medical history: Reports: asthma, COPD, GERD, hyperlipidemia, hypertension, other Surgical history: Reports: other Psychiatric history: Reports: previous psychiatric hospitalization, anxiety, bipolar, depression, prior suicide attempt [employer] history: Reports: bilateral tubal ligation - Social History Smoking Status: Former smoker Alcohol use: Reports: none Drug use: Reports: none Physical Exam - General Limitations: no limitations General appearance: alert, anxious, in distress, obese - Head Head exam: atraumatic, normocephalic, normal inspection - Eye Eye exam: Present: normal appearance, PERRL, EOMI - ENT ENT exam: normal exam, normal oropharynx, mucous membranes moist, TM's normal bilaterally, normal external ear exam - Neck Neck exam: Present: normal inspection, full ROM, trachea midline - Chest Chest inspection: Present: normal inspection, symmetric chest wall rise - Respiratory Respiratory exam: Present: normal lung sounds bilaterally, wheezes, prolonged expiratory phase - Cardiovascular Cardiovascular exam: Present: regular rate, normal rhythm, normal heart sounds - Abdominal Exam Abdominal exam: Present: soft, Non-Tender, normal bowel sounds. Absent: mass, pulsatile mass - Extremities Exam Extremities exam: Present: normal inspection, full ROM, normal capillary refill , pedal edema, joint swelling, calf tenderness. Absent: tenderness - Expanded Lower Extremity Exam Neurovascular/Tendon exam: Present: normal capillary refill, normal fine/light touch Gait: observed and normal - Back Exam Back exam: Present: normal inspection, full ROM. Absent: muscle spasm - Neurological Exam Neurological exam: Present: alert, oriented X3, CN II-XII intact, normal gait - Psychiatric Psychiatric exam: Present: normal affect, normal mood - Skin Skin exam: Present: warm, dry, intact, normal color Course Course Narrative: Patient was immediately seen and examined treatment 2 was given to the patient with some improvement patient now recalls that she has had surgery about 8 weeks ago. For hysterectomy as a result we will do a PE study just to make sure there is no underlying pulmonary emboli she was given antibiotics and Solu- Medrol she is breathing easier at this time she is able speak in sentences at this time Patient receiving fluids because she didn't meet sepsis criteria based on heart rate and along respiratory rate as well as elevated lactic acid but these heart rate and respiratory rate may be some exacerbation COPD fluid bolus provided Vital Signs Temperature 97.8 F 09/19/17 18:06 Pulse Rate 83 09/19/17 18:06 Respiratory Rate 16 09/19/17 18:06 Blood Pressure 137/89 09/19/17 18:06 O2 Sat by Pulse Oximetry 84 09/19/17 18:06 Temperature 97.8 F 09/19/17 18:06 Pulse Rate 97 09/19/17 19:30 Respiratory Rate 16 09/19/17 19:30 Blood Pressure 120/56 09/19/17 19:30 O2 Sat by Pulse Oximetry 97 09/19/17 19:30 Oxygen Delivery Oxygen Delivery Room Air Upper Respiratory Infection - Differential Diagnosis Differential Diagnosis: Likely: upper respiratory infection, other viral infection, bronchitis, influenza - Medical Records Medical records reviewed: Yes I reviewed the patient's medical records. - Lab Data Lab results reviewed: Yes I reviewed the patient's lab results. Result diagrams: 09/19/17 18:10 09/19/17 18:10 Lab Results 09/19/17 09/19/17 09/19/17 Range/Units 18:10 18:10 18:10 WBC 13.2 H (4.3-11.1) K/mcL RBC 4.72 (3.82-4.97) M/mcL Hgb 12.1 (11.5-15.4) g/dL Hct 39.3 (35.3-44.9) % MCV 83.3 (83.0-100.0) fL MCH 25.6 L (28.0-33.3) pg MCHC 30.8 L (31.6-35.5) g/dL RDW 14.6 H (11.5-14.5) % Plt Count 457 H (140-400) K/mcL MPV 9.1 L (9.4-12.4) fL Immature Gran % 0.5 (0-4) % Seg Neutrophils % 69.5 % Lymphocytes % 23.3 % Monocytes % 4.2 % Eosinophils % 2.1 % Basophils % 0.4 % Neutrophils # 9.2 H (1.6-8.9) K/mcL Lymphocytes # 3.1 (0.6-4.6) K/mcL Monocytes # 0.6 (0.0-1.3) K/mcL Eosinophils # 0.3 (0.0-0.6) K/mcL Basophils # 0.1 (0.0-0.2) K/mcL PT 11.5 (9.4-12.1) Seconds INR 1.1 APTT 33.5 (26.0-36.0) Seconds Sodium 138 (136-145) mEq/L Potassium 3.8 (3.5-5.1) mEq/L Chloride 100 (98-107) mEq/L Carbon Dioxide 29 (23-29) mEq/L BUN 4 L (6-20) mg/dL Creatinine 0.68 (0.60-1.20) mg/dL Est GFR ( Amer) > 60 (> 60) Est GFR (Non-Af Amer) > 60 (> 60) BUN/Creatinine Ratio 6 (6-26) Glucose 126 H (70-105) mg/dL Calculated Osmolality 284 (280-300) Lactic Acid (0.5-2.2) mmol/L Calcium 9.5 (8.6-10.3) mg/dL 09/19/17 Range/Units 18:10 WBC (4.3-11.1) K/mcL RBC (3.82-4.97) M/mcL Hgb (11.5-15.4) g/dL Hct (35.3-44.9) % MCV (83.0-100.0) fL MCH (28.0-33.3) pg MCHC (31.6-35.5) g/dL RDW (11.5-14.5) % Plt Count (140-400) K/mcL MPV (9.4-12.4) fL Immature Gran % (0-4) % Seg Neutrophils % % Lymphocytes % % Monocytes % % Eosinophils % % Basophils % % Neutrophils # (1.6-8.9) K/mcL Lymphocytes # (0.6-4.6) K/mcL Monocytes # (0.0-1.3) K/mcL Eosinophils # (0.0-0.6) K/mcL Basophils # (0.0-0.2) K/mcL PT (9.4-12.1) Seconds INR APTT (26.0-36.0) Seconds Sodium (136-145) mEq/L Potassium (3.5-5.1) mEq/L Chloride (98-107) mEq/L Carbon Dioxide (23-29) mEq/L BUN (6-20) mg/dL Creatinine (0.60-1.20) mg/dL Est GFR ( Amer) (> 60) Est GFR (Non-Af Amer) (> 60) BUN/Creatinine Ratio (6-26) Glucose (70-105) mg/dL Calculated Osmolality (280-300) Lactic Acid 2.5 H (0.5-2.2) mmol/L Calcium (8.6-10.3) mg/dL - Radiology Data Radiology results reviewed: Yes I reviewed the patient's radiology results. ITS Impressions Chest X-Ray 09/19/17 18:06 IMPRESSION: Right lung base opacity with volume loss may reflect atelectasis or pneumonia if the patient has fever or leukocytosis. D/ / Anthony Oden / Anthony Oden Interpreting Provider: Anthony Oden Critical Care Time Critical Care Time: No Sepsis Reassessment Note - Evaluation Sepsis Screen: No Definite Risk Current Stage of Sepsis: sepsis Reason for ruling out sepsis: Most likely secondary to the patient's respiratory distress secondary to her COPD but she definitely placed on lactic acid level as result I will place her on IV fluids based upon her ideal body weight versus her actual bodyweight because she is short in stature and morbidly obese Possible Source of Sepsis: pulmonary - Focused Exam Date of Encounter: 09/19/17 Time of Encounter: 19:45 Vital Signs: Vital Signs Temp Pulse Resp BP Pulse Ox 09/19/17 19:30 97 16 120/56 97 09/19/17 18:45 106 18 136/77 97 09/19/17 18:13 18 96 09/19/17 18:06 97.8 F 83 16 137/89 84 Respiratory Exam: Present: wheezes, rhonchi Cardiovascular Exam: Present: RRR Capillary Refill: < 2 seconds Peripheral Pulse Strength: 4+ bounding Peripheral Pulse Location: Radial Skin Exam: normal turgor - Reassessment Comments Comments: post fluid resuscitation
[2017-09-19] MEDS ORDERED: Levofloxacin 750 MG/150 ML 750 MG/150 ML BAG IVPB ONE (18:05)
[2017-09-19] MEDS ORDERED: Ipratropium/Albuterol Neb 3 ML IH ONE (18:05)
[2017-09-19] MEDS ORDERED: methylPREDNISolone 125 MG/2 ML VIAL IVP ONE (18:05)
[2017-09-19 18:18] LABS: Basophils # 0.1 K/mcL (0.0-0.2); Basophils % 0.4 %; Eosinophils # 0.3 K/mcL (0.0-0.6); Eosinophils % 2.1 %; Hematocrit 39.3 % (35.3-44.9); Hemoglobin 12.1 g/dL (11.5-15.4); Immature Granulocytes % 0.5 % (0-4); Lymphocytes # 3.1 K/mcL (0.6-4.6); Lymphocytes % 23.3 %; Mean Corpuscular HGB Conc 30.8 g/dL (31.6-35.5); Mean Corpuscular Hemoglobin 25.6 pg (28.0-33.3); Mean Corpuscular Volume 83.3 fL (83.0-100.0); Mean Platelet Volume 9.1 fL (9.4-12.4); Monocytes # 0.6 K/mcL (0.0-1.3); Monocytes % 4.2 %; Neutrophils # 9.2 K/mcL (1.6-8.9); Platelet Count 457 K/mcL (140-400); Red Blood Count 4.72 M/mcL (3.82-4.97); Red Cell Distribution Width 14.6 % (11.5-14.5); Segmented Neutrophils % 69.5 %
[2017-09-19 18:26] LABS: INR 1.1; Prothrombin Time 11.5 Seconds (9.4-12.1)
[2017-09-19 18:29] LABS: Activated Partial Thrombo Time 33.5 Seconds (26.0-36.0)
[2017-09-19 18:38] LABS: BUN/Creatinine Ratio 6 (6-26); Blood Urea Nitrogen 4 mg/dL (6-20); Calcium 9.5 mg/dL (8.6-10.3); Carbon Dioxide 29 mEq/L (23-29); Chloride 100 mEq/L (98-107); Glucose 126 mg/dL (70-105); Osmolality,Calculated 284 (280-300); Potassium 3.8 mEq/L (3.5-5.1); Sodium 138 mEq/L (136-145); eGFR For African Americans > 60 (> 60); eGFR For Non-African Americans > 60 (> 60)
[2017-09-19] MEDS ORDERED: Isovue-370 500 ML INFUS..BTL IV ONE ×2 (18:55→22:40)
[2017-09-19] MEDS ORDERED: 0.9 % Sodium Chloride 1,000 ML ONE (18:58)
[2017-09-19] MEDS: 0.9 % Sodium Chloride 1,000 ML IVC SCH ×3 (19:00→23:24)
[2017-09-19] MEDS ORDERED: Naloxone 0.4 MG/ML INJ IVP PRN (22:40)
[2017-09-19] MEDS ORDERED: Albuterol 2.5 MG/3 ML NEBULIZER IH PRN (22:40)
[2017-09-19] MEDS ORDERED: 0.9 % Sodium Chloride 1,000 ML IVC SCH (22:40)
[2017-09-19] MEDS: Ipratropium/Albuterol Neb 3 ML IH SCH (23:23)
[2017-09-19] MEDS: diazePAM 5 MG TABLET PO PRN (23:25)
[2017-09-19] MEDS: MethylPREDNISolone 40 MG/ML VIAL IVP SCH (23:26)
[2017-09-20] MEDS: Ipratropium/Albuterol Neb 3 ML IH SCH ×2 (05:30→10:16)
[2017-09-20] MEDS: MethylPREDNISolone 40 MG/ML VIAL IVP SCH (05:33)
[2017-09-20] MEDS: 0.9 % Sodium Chloride 1,000 ML IVC SCH (08:57)
[2017-09-20] MEDS: Aspirin Enteric Coated 81 MG Tablet PO SCH (09:02)
[2017-09-20] MEDS: Metoprolol XL (24 HR) Succ 50 MG TAB.ER.24H PO SCH (09:02)
[2017-09-20] MEDS: Furosemide 20 MG TABLET PO SCH (09:02)
[2017-09-20] MEDS: Isosorbide MONOnitrate (24 HR) 30 MG TAB.ER.24H PO SCH (09:02)
[2017-09-20] MEDS: (Vilazodone Hcl [Viibryd] 40 MG) PO SCH (09:05)
[2017-09-20] MEDS: diazePAM 5 MG TABLET PO PRN ×2 (09:08→21:47)
--- NOTE | 2017-09-20 11:36 | Internal Med History&Physical ---
Date of Encounter: 09/20/17 Time of Encounter: 11:00 Assessment and Plan (1) Dyspnea Current visit: Yes Status: Acute Suspect multifactorial etiology. Will do room air oximetry prior to discharge. Qualifiers: Dyspnea type: shortness of breath Qualified Code(s): R06.02 - Shortness of breath; R06.00 - Dyspnea, unspecified; R06.01 - Orthopnea Internal Medicine - H&P: HPI Chief complaint: Dyspnea Admitted From: Emergency Dept Plans for Post Hospital Care: Home History of present illness: Ms. Hanna is a 37 year old female who came to emergency room complaining of increased dyspnea onset approximate 4 days earlier. She had a cough with minimal productivity. She had subjective feelings of fevers and chills at home. She was evaluated in emergency room and felt to have exacerbation of COPD with possible pneumonia. She was admitted to [facility] floor for ongoing care needs. She states her breathing has improved now but she does not feel back to her baseline and does not feel she is stable for discharge home. Her respiratory history is significant for having smoked from age [age] up to 1-1/2 packs per day. She recently had oxygen placed in the home which she uses at night but not during the daytime. She reports she is having a sleep study scheduled in the near future. She had pulmonary function testing 04/04/2015 which showed FEV1/FVC 73%. FVC was 96% predicted. MVV was decreased at 46% predicted. Past Med Surg Social Fam HX - Past Medical History Medical history: asthma, COPD, GERD, hyperlipidemia, hypertension, other Psychiatric history: previous psychiatric hospitalization, anxiety, bipolar, depression, prior suicide attempt - Past Surgical History Surgical History: hysterectomy - Social History Smoking Status: Former smoker Smokeless Tobacco Status: No Alcohol use: none Drug use: none - Family History Father Adopted: No Family Member Ethnicity: Non- Living Status: Hx Family Cardiac Disorders: Yes Hx Family Respiratory Disorders: Yes Hx Family Cancer: Yes Hx Family GI Disorders: No Hx Family Endocrine Disorder: Yes Hx Family Neuromuscular Disorders: No Hx Family Neurologic Disorders: No Hx Family HEENT Disorders: No Hx Family Autoimmune Disorders: No Mother Adopted: No Living Status: Hx Family Cardiac Disorders: Yes Hx Family Respiratory Disorders: Yes (COPD, Asthma) Hx Family Cancer: Yes (Cervial) Internal Medicine - H&P: Meds Atorvastatin [Lipitor] 40 mg PO HS 03/17/15 [History] Montelukast [Singulair] 10 mg PO DAILY #30 tablet 03/22/15 [Rx] diazePAM [Valium] 5 mg PO TID PRN 10/04/15 [History] Albuterol Sulfate [Albuterol Inhaler] 2 puff IH Q4H PRN #1 inh 02/02/16 [Rx] Potassium Chloride 10 meq PO DAILY #30 tab.er.prt 02/02/16 [Rx] Trazodone HCl 200 - 300 mg PO HS 03/03/16 [History] Vilazodone HCl [Viibryd] 40 mg PO DAILY 03/03/16 [History] Furosemide [Lasix] 20 mg PO DAILY 01/06/17 [History] Aspirin [Lo-Dose Aspirin EC] 1 tab PO DAILY 05/16/17 [History] BuPROPion [Wellbutrin] 100 mg PO DAILY 05/16/17 [History] Isosorbide MONOnitrate [Isosorbide Mononitrate ER] 30 mg PO DAILY 05/23/17 [ History] Metoprolol Succinate 50 mg PO DAILY #30 tab.er.24h 05/27/17 [Rx] Tiotropium [Spiriva] 18 mcg IH DAILYR #30 inh 05/27/17 [Rx] Estrogens, Conjugated [Premarin] 1 mg PO 09/19/17 [History] Oxygen [Oxygen] 2 l IH HS 09/19/17 [History] 3 Allergy/AdvReac Type Severity Reaction Status Date / Time No Known Allergies Allergy Verified 09/19/17 17:45 All Systems PM: A 10-system review of systems was performed and is negative for pertinent findings except as documented above in the HPI. Review of systems: Review of systems from her May 2017 [facility] hospitalization were reviewed and revised as below. Gen.: Her weight has increased from 90.718 kg at April 2014 [facility] hospitalization to present weight of 110.858 kg. Cardiovascular: She has history of hypertension but denies LA heart failure angina DVT or pulmonary embolus. She attempted a stress test several years ago but could not complete it. She had an echocardiogram 08/24/2016 which showed LVEF of 60%. There is indeterminate LV diastolic function. No significant valvular abnormality was seen. Respiratory: As per history of present illness GI: She has been diagnosed with NAFLD. She denies other disorder of her liver gallbladder or exocrine pancreas. : She had cystoscopy for hematuria approximately September 2013 which was unremarkable. She denies other kidney or bladder disorders. Neurologic: She denies large distribution strokes or seizures. Endocrine: She has hyperlipidemia but no known diabetes or thyroid disease Hematology/oncology: She has chronic leukocytosis and has been evaluated by [facility] vocal music teacher/oncologist. Her last visit was July 2016. She denies internal malignancies or other blood disorders. Her WBC was normal in emergency room Psychiatric: She has anxiety, Bipolar disorder, and insomnia Musk skeletal: She claims she has arthritis of her knees and spine. She denies gout or fibromyalgia. She has cervical HNP and had cervical spine surgery February 2016 at [facility]. She has frequent low back pain. - Constitutional Vitals: Temp Pulse Resp BP Pulse Ox 98.3 F 110 28 118/65 94 09/20/17 11:12 09/20/17 11:12 09/20/17 11:12 09/20/17 11:12 09/20/17 11:12 Exam: Gen.: She is well-developed overweight female sitting in bed who appears in minimal distress at present time HEENT: Head is atraumatic and normocephalic. Eyes: EOMI. There is no scleral icterus. Mouth: Mucosa is moist. Neck: Supple and nontender. There is no thyromegaly or adenopathy noted. Heart: Regular without murmurs gallops or ectopics Lungs: She has diminished breath sounds diffusely. No wheezes or crackles are heard. Abdomen: Soft and nontender. No masses or guarding are noted. She has healing incisions from laparoscopic hysterectomy July 2017. Extremities: There is no cyanosis edema or clubbing noted. Dorsalis pedis and posttibial pulses are 1-2 over 2 bilaterally. Neurologic: Mental status: She is talkative and a good historian. Cranial nerves: Smile is symmetric. Forehead wrinkles bilaterally. Tongue protrudes midline. EOMI. Motor: There is no pronator drift. Cerebellar: Finger to nose is intact bilaterally. Skin: Warm and dry Internal Med - H&P Results - Labs CBC & Chem 7: 09/19/17 18:10 09/19/17 18:10
[2017-09-20] MEDS: Tiotropium 18 MCG inhalation IH SCH (16:57)
[2017-09-20] MEDS ORDERED: Levofloxacin 500 MG/100 ML 500 MG/100 ML BAG IVPB SCH (18:00)
[2017-09-20] MEDS ORDERED: traZODone 50 MG TABLET PO SCH (21:00)
[2017-09-21] MEDS ORDERED: *HR* Enoxaparin 40 MG/0.4 ML SYRINGE SQ SCH (06:00)
[2017-09-21 06:26] LABS: Basophils % 0.1 %; Hematocrit 33.6 % (35.3-44.9); Hemoglobin 10.4 g/dL (11.5-15.4); Immature Granulocytes % 1.7 % (0-4); Lymphocytes # 3.3 K/mcL (0.6-4.6); Lymphocytes % 15.4 %; Mean Corpuscular Hemoglobin 25.7 pg (28.0-33.3); Mean Platelet Volume 9.2 fL (9.4-12.4); Monocytes # 0.9 K/mcL (0.0-1.3); Monocytes % 4.1 %; Neutrophils # 16.7 K/mcL (1.6-8.9); Platelet Count 406 K/mcL (140-400); Red Blood Count 4.05 M/mcL (3.82-4.97); Red Cell Distribution Width 14.8 % (11.5-14.5); Segmented Neutrophils % 78.7 %
[2017-09-21 06:40] VITALS: BP 113/61
[2017-09-21 06:44] LABS: BUN/Creatinine Ratio 16 (6-26); Blood Urea Nitrogen 10 mg/dL (6-20); Calcium 9.3 mg/dL (8.6-10.3); Carbon Dioxide 30 mEq/L (23-29); Chloride 103 mEq/L (98-107); Glucose 114 mg/dL (70-105); Osmolality,Calculated 280 (280-300); Potassium 3.9 mEq/L (3.5-5.1); Sodium 135 mEq/L (136-145); eGFR For African Americans > 60 (> 60); eGFR For Non-African Americans > 60 (> 60)
[2017-09-21] MEDS: Aspirin Enteric Coated 81 MG Tablet PO SCH (07:57)
[2017-09-21] MEDS: Furosemide 20 MG TABLET PO SCH (07:57)
[2017-09-21] MEDS: Metoprolol XL (24 HR) Succ 50 MG TAB.ER.24H PO SCH (07:57)
[2017-09-21] MEDS: Isosorbide MONOnitrate (24 HR) 30 MG TAB.ER.24H PO SCH (07:57)
[2017-09-21] MEDS: Tiotropium 18 MCG inhalation IH SCH (09:59)
[2017-09-21] MEDS: (Vilazodone Hcl [Viibryd] 40 MG) PO SCH (10:34)
--- NOTE | 2017-09-21 10:58 | Discharge Summary ---
Date of Encounter: 09/21/17 Time of Encounter: 10:25 - Discharge Diagnosis (1) Dyspnea Priority: Primary Status: Acute Qualifiers: Dyspnea type: shortness of breath Qualified Code(s): R06.02 - Shortness of breath; R06.00 - Dyspnea, unspecified; R06.01 - Orthopnea Hospital course: Ms. Hanna is a 37 year old female who came to emergency room complaining of increased dyspnea onset approximate 4 days earlier. She had a cough with minimal productivity. She had subjective feelings of fevers and chills at home. She was evaluated in emergency room and felt to have exacerbation of COPD with possible pneumonia. She was admitted to [facility] for ongoing care needs. Initial orders were written by the emergency room physician. I saw her on September 20 and performed a history and physical. She was given IV Levaquin. I added lactobacillus. She reported less dyspnea when I saw her on September 21. She reported she had oxygen in the home so room air oximetry was not done prior to discharge. I encouraged her to wear oxygen not only at bedtime and she had been doing but use it during the daytime as well. She will continue with oral antibiotics and probiotic for 5 additional days at discharge. WBC kylee to 21.2 on day of discharge but there was minimal left shift. She remained afebrile. Chest CTA done in emergency room showed 10 x 6 x 4 mm left lower lobe pulmonary nodule which was new from previous scan. Repeat CT in 6-12 months was recommended. Her PCP can arrange this to follow-up on the nodule and mildly enlarged hilar lymph nodes. On September 21 she felt stable for discharge home. She will follow with her PCP Dr. Zhao within 1 week. - Time Spent with Patient Total time spent providing and/or coordinating discharge services: - Discharge Medications Prescriptions: Lactobacillus [Culturelle] 1 each PO BID #10 cap.sprink levoFLOXacin [Levaquin] 500 mg PO DAILY #5 tablet Home Medications: Atorvastatin [Lipitor] 40 mg PO HS 03/17/15 [History] Montelukast [Singulair] 10 mg PO DAILY #30 tablet 03/22/15 [Rx] diazePAM [Valium] 5 mg PO TID PRN 10/04/15 [History] Albuterol Sulfate [Albuterol Inhaler] 2 puff IH Q4H PRN #1 inh 02/02/16 [Rx] Potassium Chloride 10 meq PO DAILY #30 tab.er.prt 02/02/16 [Rx] Trazodone HCl 200 - 300 mg PO HS 03/03/16 [History] Vilazodone HCl [Viibryd] 40 mg PO DAILY 03/03/16 [History] Furosemide [Lasix] 20 mg PO DAILY 01/06/17 [History] Aspirin [Lo-Dose Aspirin EC] 1 tab PO DAILY 05/16/17 [History] BuPROPion [Wellbutrin] 100 mg PO DAILY 05/16/17 [History] Isosorbide MONOnitrate [Isosorbide Mononitrate ER] 30 mg PO DAILY 05/23/17 [ History] Metoprolol Succinate 50 mg PO DAILY #30 tab.er.24h 05/27/17 [Rx] Tiotropium [Spiriva] 18 mcg IH DAILYR #30 inh 05/27/17 [Rx] Estrogens, Conjugated [Premarin] 1 mg PO 09/19/17 [History] Oxygen 2 l IH HS 09/19/17 [History] Lactobacillus [Culturelle] 1 each PO BID #10 cap.sprink 09/21/17 [Rx] levoFLOXacin [Levaquin] 500 mg PO DAILY #5 tablet 09/21/17 [Rx] Allergies/Adverse Reactions: 3 Allergy/AdvReac Type Severity Reaction Status Date / Time No Known Allergies Allergy Verified 09/19/17 17:45 Date of admission: 09/20/17 14:42 Primary care physician: Lam Zhao DO - Constitutional Vitals: Temp Pulse Resp BP Pulse Ox 98.6 F 58 15 113/61 92 09/21/17 06:36 09/21/17 06:36 09/21/17 10:02 09/21/17 06:36 09/21/17 10:02 - Patient Status Disposition: Home, Self-Care Condition: Good Functional capacity at discharge: independent ambulation Overall status at discharge: patient is progressing back to baseline - Discharge Instructions Follow Up With: Lam Zhao DO [Primary Care Provider] - 1 week - Diet and Activity Activity: wear oxygen at all times Diet: low fat, low cholesterol
== END 2017-09-21 12:37 | disposition home or self-care (01) | DRG 190 ==
LOC: INPPIK 17:43 → EMEROOPIK 17:43 → INPPIK 20:10
PROVIDERS: ADMIT Internal Medicine; ATTEND Internal Medicine